=== PATIENT | male | born 1950 | race Caucasian/White ===

== ENCOUNTER 2016-08-13 23:43 | Emergency (ER) | payer BC ==
[~2016-08-13 23:43] MED LIST: ADVIL PM CAPLE1 EACH PO; BUSPIRONE HCL15 MG PO; CYMBALTA30 MG PO; ENULOSE10 GM/15 M PO; ISOSORBIDE DINI30 MG PO; JANUVIA100 MG PO; LEVEMIR100 UNIT/1 SQ; LISINOPRIL5 MG PO; METFORMIN HCL500 MG PO; NEURONTIN 300300 MG PO; PROTONIX 40 MG40 M1 PO; RANITIDINE HCL150 M1 PO; TOPROL XL 25 MG25 MG PO; [UNRECOGNIZED DRUG - OTHER] SQ
[2016-08-14 02:20] LABS: HEMOGLOBIN 12.1 gm/dl (14.0-17.5); RED BLOOD COUNT 3.66 M/UL (4.20-5.50); WHITE BLOOD COUNT 9.2 K/UL (4.5-11.0)
[2016-08-14 03:13] LABS: BUN/CREATININE RATIO 11 (0-10)
[2016-12-09] MEDS ORDERED: LIPITOR TAB 1010 MG PO (05:11)
[2016-12-09] MEDS ORDERED: TOPROL XL 25 MG25 MG PO (05:12)
[2016-12-09] MEDS ORDERED: ASPIRIN81 MG PO (05:14)
[2016-12-09] MEDS ORDERED: OMEPRAZOLE40 MG PO (05:15)
[2016-12-09] MEDS ORDERED: XIFAXAN200 MG PO (05:16)
== END 2016-08-14 04:35 | disposition home or self-care (01) ==
LOC: ER1 23:43
PROVIDERS: Specialist/Technologist Athletic Trainer
DX: G89.18 Other acute postprocedural pain (principal); R07.81 Pleurodynia; I25.810 Atherosclerosis of coronary artery bypass graft(s) without angina pectoris; E11.9 Type 2 diabetes mellitus without complications; I10 Essential (primary) hypertension; Z95.1 Presence of aortocoronary bypass graft
CPT/HCPCS: 36415; 71250; 80053; 82550; 82553; 83874; 83880; 84484; 85025; 85610; 85730; 93005; 96374; 96375; 99284; J2270; J2405

== ENCOUNTER → 2016-10-11 | Outpatient (CLI) | payer BC ==
[~2016-10-11] MED LIST changes: +ASPIRIN81 MG PO; +LIPITOR TAB 1010 MG PO; +OMEPRAZOLE40 MG PO; +XIFAXAN200 MG PO
== END ==
LOC: LAB 12:10
PROVIDERS: Internal Medicine Cardiovascular Disease
DX: I10 Essential (primary) hypertension (principal)
CPT/HCPCS: 36415; 80048